=== PATIENT | female | born 1995 | race Caucasian/White ===

== ENCOUNTER → 2017-04-14 | Outpatient (CLI) | payer BC ==
[~2017-04-14] MED LIST: ALBU1AER9 INH; BCPILLS PO
[2017-04-18 10:23] LABS: CHLAMYDIA TRACH RNA*** NOT DETECTED (NOT DETECTED); GC (NEIS GONORRHOEAE)RNA** NOT DETECTED (NOT DETECTED)
== END | disposition home or self-care (01) ==
LOC: C.LABSPEC 14:15
PROVIDERS: ATTEND Physician Assistant
DX: Z01.419 Encounter for gynecological examination (general) (routine) without abnormal findings (principal)

== ENCOUNTER → 2017-04-14 | Outpatient (CLI) | payer BC | END | disposition home or self-care (01) | LOC: C.PAPS 13:47 | PROVIDERS: ATTEND Physician Assistant | DX: Z01.419 Encounter for gynecological examination (general) (routine) without abnormal findings (principal) ==

== ENCOUNTER 2017-09-22 01:03 | Emergency (ER) | payer BC ==
[~2017-09-22] VITALS: Ht 165.1 cm; Wt 117.9 kg
[2017-09-22 01:06] VITALS: Ht 165.1 cm; Wt 117.9 kg
[2017-09-22] MEDS ORDERED: ALBUT/IPRATROP 3MG/0.5MG NEB 3 ML VIAL INH STA ×2 (01:25→02:43)
--- NOTE | 2017-09-22 01:32 | EMERGENCY ROOM VISIT NOTE ---
History Report prepared by Shin: Ania Ricardo Under the Supervision of: Onesimo DardenO. First contact with patient: 01:14 Chief Complaint: FLU LIKE SX Stated Complaint: FLU SYMPTOMS-COUGH,FEVER,CONGESTION History of Present Illness The patient is a 22 year old female who presents to the Emergency Room with complaints of an episode of a fever occurring two days ago. The patient states she got home from the [facility] a couple hours ago. The patient states her symptoms started as a sore throat on Tuesday, four days ago. She reports she then started to have nasal congestion, chest congestion, difficulty breathing, and a productive cough. The patient states her cough was initially dry but is now productive with clear sputum. The patient states she also had a fever yesterday morning but states it broke after she took Tylenol. The patient was on a mission trip when her fever started two days ago. She reports there was no thermometer on her trip. She states she "broke" her fever two days ago and woke up sweating. The patient has a history of asthma. She did not bring her inhaler on the trip and denies using her inhaler since being home. The patient reports she has several bug bites from her trip. She denies any sick contact. The patient got a flu shot this year and is up to date on her immunizations. Per mother, the CDC said there was measles outbreak in the airport the patient travelled through two days after the patent flew out of it. Pt denies headache, change in vision, chest pain, nausea, vomiting, diarrhea, pain with urination, and melena. Source of History: patient Onset: two days ago Position: other (generalized) Quality: other (fever) Timing: other (episode) Associated Symptoms: + fevers, + cough, + SOB, No chest pain, No nausea, No vomiting, No diarrhea Review of Systems See HPI for pertinent positives & negatives. A total of 10 systems reviewed and were otherwise negative. Past Medical & Surgical Medical Problems: (1) Asthma, Unspecified (2) (3) (4) Seasonal allergies (5) Vomiting Family History Patient reports no known family medical history. Social History Smoking Status: Never Smoker Alcohol Use: none Drug Use: none Marital Status: single Occupation Status: student Current/Historical Medications Scheduled Albuterol (Ventolin Hfa), 2 PUFFS INH QID Azithromycin (Zithromax), 250 MG PO DAILY Benzonatate (Tessalon Perles), 100 MG PO Q8 Control Pills ( Control Pills), 1 TAB PO DAILY Scheduled PRN Albuterol Hfa (Ventolin Hfa), 2 PUFFS INH Q6H PRN for Cough Cetirizine (Zyrtec), 10 MG PO DAILY PRN for allergy sx Allergies Coded Allergies: Grass (Unverified Allergy, Unknown, congestion, 09/22/17) Molds & Smuts (Unverified Allergy, Unknown, congestion, 09/22/17) Sulfa Drugs (Verified Allergy, Unknown, HIVES, 09/22/17) Physical Exam Vital Signs Date Time Temp Pulse Resp B/P (MAP) Pulse Ox O2 Delivery O2 Flow Rate FiO2 09/22/17 03:21 36.5 91 18 138/80 96 Room Air 09/22/17 02:28 36.6 90 18 140/95 95 Room Air 09/22/17 01:06 36.8 99 18 138/95 94 Room Air Physical Exam GENERAL: alert, well appearing, well nourished, no distress, non-toxic EYE EXAM: normal conjunctiva, PERRL and EOM's grossly intact OROPHARYNX: no exudate, no erythema, lips, buccal mucosa, and tongue normal and mucous membranes are moist NECK: supple, no nuchal rigidity, no adenopathy, non-tender LUNGS:Lung sounds slightly diminished, no W/R/R. HEART: no murmurs, S1 normal and S2 normal ABDOMEN: abdomen soft, non-tender, normo-active bowel sounds, no masses, no rebound or guarding. BACK: Back is symmetrical on inspection and there is no deformity, no midline tenderness, no CVA tenderness. SKIN: no rashes and no bruising UPPER EXTREMITIES: upper extremities are grossly normal. LOWER EXTREMITIES: No pitting edema. NEURO EXAM: Normal sensorium, cranial nerves II-XII grossly intact, normal speech, no gross weakness of arms, no gross weakness of legs. Medical Decision & Procedures ER Provider Diagnostic Interpretation: Radiology results have been interpreted by me. Chest X-ray: no cardiomegaly, no effusions, no focal consolidation, mildly increased perihilar interstitial markings, questionable evolving retro cardiac infiltrate. Laboratory Results 09/22/17 01:51 Red Blood Count 5.21, Mean Corpuscular Volume 82.0, Mean Corpuscular Hemoglobin 28.6, Mean Corpuscular Hemoglobin Concent 34.9, Mean Platelet Volume 9.8, Neutrophils (%) (Auto) 40.7, Lymphocytes (%) (Auto) 43.0, Monocytes (%) (Auto) 11.5, Eosinophils (%) (Auto) 4.5, Basophils (%) (Auto) 0.2, Neutrophils # (Auto ) 3.68, Lymphocytes # (Auto) 3.90, Monocytes # (Auto) 1.04, Eosinophils # (Auto ) 0.41, Basophils # (Auto) 0.02 09/22/17 01:51 Test 09/22/17 01:35 09/22/17 01:51 Influenza Type A Antigen Neg for Influ A (NEG) Influenza Type B Antigen Neg for Influ B (NEG) White Blood Count 9.06 K/uL (4.8-10.8) Red Blood Count 5.21 M/uL (4.2-5.4) Hemoglobin 14.9 g/dL (12.0-16.0) Hematocrit 42.7 % (37-47) Mean Corpuscular Volume 82.0 fL (80-100) Mean Corpuscular Hemoglobin 28.6 pg (25-34) Mean Corpuscular Hemoglobin Concent 34.9 g/dl (32-36) Platelet Count 320 K/uL (130-400) Mean Platelet Volume 9.8 fL (7.4-10.4) Neutrophils (%) (Auto) 40.7 % Lymphocytes (%) (Auto) 43.0 % Monocytes (%) (Auto) 11.5 % Eosinophils (%) (Auto) 4.5 % Basophils (%) (Auto) 0.2 % Neutrophils # (Auto) 3.68 K/uL (1.4-6.5) Lymphocytes # (Auto) 3.90 K/uL (1.2-3.4) Monocytes # (Auto) 1.04 K/uL (0.11-0.59) Eosinophils # (Auto) 0.41 K/uL (0-0.5) Basophils # (Auto) 0.02 K/uL (0-0.2) RDW Standard Deviation 38.2 fL (36.4-46.3) RDW Coefficient of Variation 12.7 % (11.5-14.5) Immature Granulocyte % (Auto) 0.1 % Immature Granulocyte # (Auto) 0.01 K/uL (0.00-0.02) Anion Gap 6.0 mmol/L (3-11) Est Creatinine Clear Calc Drug Dose 185.8 ml/min Estimated GFR () 149.1 Estimated GFR (Non- 128.7 BUN/Creatinine Ratio 11.0 (10-20) Calcium Level 9.3 mg/dl (8.5-10.1) Troponin I < 0.015 ng/ml (0-0.045) Human Chorionic Gonadotropin, Qual NEG (NEG) Laboratory results per my review. Medications Administered Medications (Trade) Dose Ordered Sig/Debra Route Start Time Stop Time Status Last Admin Dose Admin Albuterol/ Ipratropium (Duoneb) 3 ml NOW STAT INH 09/22/17 01:25 09/22/17 01:27 DC 09/22/17 01:44 3 ML Albuterol/ Ipratropium (Duoneb) 3 ml NOW STAT INH 09/22/17 02:43 09/22/17 02:44 DC 09/22/17 03:07 3 ML Azithromycin (Zithromax Tab) 500 mg NOW ONCE PO 09/22/17 02:45 09/22/17 02:46 DC 09/22/17 03:07 500 MG Benzonatate (Tessalon Perles Cap) 100 mg NOW ONCE PO 09/22/17 03:45 09/22/17 03:46 DC 09/22/17 03:46 100 MG ECG Indication: SOB/dyspnea Rate (beats per minute): 80 Rhythm: sinus rhythm Findings: no acute ischemic change, other (normal axis normal interval ) ED Course 0116: The patient was evaluated in room B2. A complete history and physical exam was performed. 0125: Ordered Duoneb 3 ml INH. 0217: The patient feels better after the breathing treatment. 0243: Ordered Duoneb 3 ml INH. 0245: Ordered Azithromycin 500 mg PO. 0314: The patient is feeling better. 0347: Ordered Benzonatate 100 mg PO. 0349: Upon reevaluation, the patient is feeling better. I discussed the findings and the treatment plan with the patient. She verbalizes agreement and understanding. The patient was discharged home. Medical Decision Differential diagnosis: Etiologies such as infections, reactive airway disease, pneumonia, pneumothorax , COPD, CHF, cardiac ischemia, pulmonary embolism, musculoskeletal, gastrointestinal, as well as others were entertained. Patient well-appearing here and improved with nebulizer treatments. Discussed labs and imaging at bedside. Discussed given recent travel, possibility of viral infection or other vector borne illness such as Chikungunya which is treated with supportive therapy also. However given findings of early infiltrate on cxr, will cover for CAP. Immunizations UTD. Has MDI/spacer at home to use. Discussed follow-up with family doctor, use of MDI and spacer, use of antibiotics, symptoms to watch and return for, she verbalized understanding was agreeable with plan. Medication Reconcilliation Current Medication List: was personally reviewed by me Blood Pressure Screening Patient's blood pressure: Elevated blood pressure Blood pressure disposition: Elevated BP felt to be situational Impression Primary Impression: Influenza-like symptoms Additional Impression: Pneumonia Scribe Attestation The scribe's documentation has been prepared under my direction and personally reviewed by me in its entirety. I confirm that the note above accurately reflects all work, treatment, procedures, and medical decision making performed by me. Departure Information Dispostion Home / Self-Care Prescriptions Benzonatate (Tessalon Perles) 100 Mg Cap 100 MG PO Q8 for Cough, #30 CAP Prov: Maribel Malave, DO 09/22/17 Azithromycin (Zithromax) 250 Mg Tab 250 MG PO DAILY, #4 TAB Prov: Maribel Malave, DO 09/22/17 Albuterol (Ventolin Hfa) 60 Puffs/5400 Mcg Aers 2 PUFFS INH QID for SOB/Wheezing, #1 INHALER Prov: Maribel Malave, DO 09/22/17 Referrals Nader Meza M.D. (PCP) Forms HOME CARE DOCUMENTATION FORM, IMPORTANT VISIT INFORMATION Patient Instructions My [facility] Additional Instructions Please continue taking the antibiotics as prescribed. You may use your inhaler and spacer up to every 4 hours as needed for shortness of breath/wheezing/chest tightness. You may use Tylenol and ibuprofen as needed for fevers and pain. Please stay well-hydrated and drink water frequently. You may eat as tolerated. Please follow up with her family doctor or [facility] services in 48 hours to be rechecked. If you develop any worsening shortness of breath, chest pain, feel the inhalers do not help her you need to use them sooner than every 4 hours, noticed blood in your sputum, have persistent fevers , diarrhea, you've any other new concerns, please return the emergency room. Problem Qualifiers Additional Impression: Pneumonia Pneumonia type: due to unspecified organism Laterality: left Lung location : unspecified part of lung Qualified Codes: J18.9 - Pneumonia, unspecified organism
[2017-09-22] MEDS ORDERED: VNTHFA/IN INH (01:50)
[2017-09-22] MEDS ORDERED: CETI10TA84 PO (01:50)
[2017-09-22 01:58] LABS: BASO % 0.2 %; BASO ABS # 0.02 K/uL (0-0.2); EOS % 4.5 %; EOS ABS # 0.41 K/uL (0-0.5); HEMATOCRIT 42.7 % (37-47); HEMOGLOBIN 14.9 g/dL (12.0-16.0); IG# 0.01 K/uL (0.00-0.02); MEAN CORPUSCULAR HEMOGLOBIN 28.6 pg (25-34); MEAN CORPUSCULAR HGB CONC 34.9 g/dl (32-36); MEAN PLATELET VOLUME 9.8 fL (7.4-10.4); MONO % 11.5 %; MONO ABS # 1.04 K/uL (0.11-0.59); NEUT % 40.7 %; NEUT ABS # 3.68 K/uL (1.4-6.5); PLATELET COUNT 320 K/uL (130-400); RED CELL DISTRIBUTION WIDTH CV 12.7 % (11.5-14.5); RED CELL DISTRIBUTION WIDTH SD 38.2 fL (36.4-46.3); WHITE BLOOD COUNT 9.06 K/uL (4.8-10.8)
[2017-09-22 02:17] LABS: BLOOD UREA NITROGEN 7 mg/dl (7-18); CALCIUM 9.3 mg/dl (8.5-10.1); CARBON DIOXIDE 25 mmol/L (21-32); CREATININE 0.61 mg/dl (0.60-1.20); GLUCOSE 83 mg/dl (70-99); POTASSIUM 3.6 mmol/L (3.5-5.1); SODIUM 137 mmol/L (136-145)
[2017-09-22 02:20] LABS: INFLUENZA B ANTIGEN Neg for Influ B (NEG)
[2017-09-22] MEDS ORDERED: AZITHROMYCIN 250 MG TAB PO ONE (02:45)
[2017-09-22 03:21] VITALS: BP 138/80; PULSE 91; TEMP 36.5; O2SAT 96
[2017-09-22] MEDS ORDERED: BENZ100C84 PO (03:38)
[2017-09-22] MEDS ORDERED: PRVHFAIN INH (03:38)
[2017-09-22] MEDS ORDERED: AZIT250T PO (03:38)
[2017-09-22] MEDS ORDERED: BENZONATATE 100MG CAP PO ONE (03:45)
--- NOTE | 2017-09-22 06:31 | DIAGNOSTIC IMAGING REPORT ---
CHEST 2 VIEWS ROUTINE CLINICAL HISTORY: sob, cough, fever COMPARISON STUDY: 10/10/2015 FINDINGS: The heart is normal in size. There are patchy left lower lobe airspace opacities, consistent with a pneumonia.[ No pleural effusions are visualized. There is no failure. IMPRESSION: Left lower lobe airspace opacities consistent with pneumonia. Films subsequent to treatment are recommended in follow-up. Electronically signed by: Trey Hoang M.D. 09/22/2017 6:29 AM Dictated Date/Time: 09/22/2017 6:29 AM
== END 2017-09-22 03:47 | disposition home or self-care (01) ==
LOC: C.EDB 01:04
DX: J02.9 Acute pharyngitis, unspecified (principal); J18.9 Pneumonia, unspecified organism; J45.909 Unspecified asthma, uncomplicated